=== PATIENT | female | born 1965 | race Caucasian/White ===

== ENCOUNTER 2021-06-13 10:34 | Outpatient (CLI) | payer BC ==
[2021-06-13 16:46] LABS: SARS-CoV-2 PCR by NAA Not Detected (NotDetected)
== END 2021-06-13 10:35 | disposition home or self-care (01) ==
LOC: CSHLAB 10:34
PROVIDERS: ATTEND Internal Medicine Gastroenterology
DX: Z20.822 Contact with and (suspected) exposure to COVID-19 (principal)
CPT/HCPCS: U0003; U0005

== ENCOUNTER 2021-06-16 07:44 | Outpatient (CLI) | payer BC | END 2021-06-16 07:45 | disposition home or self-care (01) | LOC: CSHULT 07:44 | PROVIDERS: ATTEND Internal Medicine Gastroenterology | DX: R10.9 Unspecified abdominal pain (principal) | CPT/HCPCS: 76700 ==

== ENCOUNTER 2021-06-16 08:35 | Day surgery (SDC) | payer BC ==
[2021-06-14 11:46] VITALS: BMI 17.2
[2021-06-16] MEDS ORDERED: Lidocaine 1% MPF 2 ML VIAL ONE (09:55)
[2021-06-16] MEDS ORDERED: PROPOFOL 20 ML ONE (11:26)
[2021-06-16] MEDS ORDERED: Midazolam HCl 2 mg/2 ml Vial ONE (11:26)
== END 2021-06-16 12:30 | disposition home or self-care (01) ==
LOC: CSHSDC 08:35
PROVIDERS: ATTEND Internal Medicine Gastroenterology
PROC: 0DB68ZZ Excision of Stomach, Via Natural or Artificial Opening Endoscopic (ICD-10-PCS; principal; 2021-06-16)
DX: R10.9 Unspecified abdominal pain (principal); K44.9 Diaphragmatic hernia without obstruction or gangrene
CPT/HCPCS: 76700; 88305; 88312; J2250; J2704

== ENCOUNTER 2021-10-30 13:40 | Outpatient (CLI) | payer BC | END 2021-10-30 13:41 | disposition home or self-care (01) | LOC: CSHMAMMO 13:40 | PROVIDERS: ATTEND Physician Assistant | DX: Z12.31 Encounter for screening mammogram for malignant neoplasm of breast (principal); Z80.3 Family history of malignant neoplasm of breast | CPT/HCPCS: 77063; 77067 ==